=== PATIENT | female | born 1995 | race African-American/Black ===

== ENCOUNTER 2021-12-07 19:33 | Emergency (ER) | payer MEDICAID, OTHER ==
[~2021-12-07] VITALS: Ht 165.1 cm; Wt 86.0 kg
[2021-12-07 19:50] VITALS: BP 123/78
[2021-12-07] MEDS ORDERED: METOCLOPRAMIDE HCL 5MG/ml INJ 2ml VIAL IV ONE (20:45)
[2021-12-07] MEDS ORDERED: diphenhdrAMINE HCL 50 MG/1 ML VL IV ONE (20:45)
[2021-12-07] MEDS ORDERED: HYDROcodone-ACET 5/325MG TAB PO ONE (20:45)
== END 2021-12-08 00:04 | disposition home or self-care (01) ==
LOC: ER 19:33
DX: G43.909 Migraine, unspecified, not intractable, without status migrainosus (principal)
CPT/HCPCS: 81025; 96374; 96375; 99284; J1200; J2765